=== PATIENT | male | born 2000 | race Two or more races ===

== ENCOUNTER 2023-08-12 00:07 | Emergency (ER) | payer OTHER ==
[2023-08-12 00:15] VITALS: RESP 18; TEMP 98.3; BMI 21.7
[2023-08-12] MEDS ORDERED: ACETAMINOPHEN 500 MG TABLET (FP) PO ONE (00:45)
[2023-08-12] MEDS ORDERED: ACETAMINOPHEN 325 MG TABLET (FP) ONE (00:49)
[2023-08-12 01:37] VITALS: BP 131/96; PULSE 100
[2023-08-12] MEDS ORDERED: POLYMYXIN B SULFATE/TMP 10 ML OPHTHALMIC SOLUTION OS SCH ×3 (01:47→06:00)
== END 2023-08-12 02:07 | disposition home or self-care (01) ==
LOC: JER 00:07
DX: H10.9 Unspecified conjunctivitis (principal); A49.9 Bacterial infection, unspecified; R51.9 Headache, unspecified; R42 Dizziness and giddiness; H92.01 Otalgia, right ear; H92.02 Otalgia, left ear; R09.81 Nasal congestion; Z20.822 Contact with and (suspected) exposure to COVID-19
CPT/HCPCS: 0241U-QW; 70450-TC; 99284-25